=== PATIENT | male | born 1945 | race Caucasian/White ===

== ENCOUNTER → 2019-01-17 | Outpatient (CLI) | payer OTHER ==
[~2019-01-17] VITALS: Ht 172.7 cm; Wt 95.3 kg
[~2019-01-17] MED LIST: B COMPLEX1 EACH PO; CALCIUM500 MG PO; FLOMAX0.4 MG PO; FOSAMAX 70 MG T70 MG PO; GLUCOPHAGE1000 MG PO; NOVOLIN 70100 UNIT/5 SUBQ; VITAMIN D1000 UNI2 PO
--- NOTE | 2019-01-18 10:45 | P ---
[facility] [place] [address] PROCEDURE REPORT Name: THOMASGALENKAROL CORADO Room #: [id number] Admission: 01/17/19 Attend Phys: Cesar Vanegas Discharge: Date of : 41 Report #: [id number] THIS REPORT FOR: //name// CC: Cesar Martinez MD DATE OF SERVICE: 01/17/2019 PROCEDURE PERFORMED: Colonoscopy with biopsies. HISTORY OF PRESENT ILLNESS: The patient is a 73-year-old male who presents today for a screening colonoscopy. Denies any symptoms. He is apparently to undergo a ventral hernia repair in the near future. No family history of colon cancer. DESCRIPTION OF PROCEDURE: The risks and benefits of the procedure were explained to the patient, those risks including but not limited to bleeding, perforation and the risk of sedation. He understood these risks and gave informed consent. Sedation was given using propofol per anesthesia. Next, a digital rectal exam was initially performed, which was normal. Next, using a standard Olympus colonoscope, the scope was placed in the patient's anus and advanced under direct vision into the right colon, at which a surgical anastomosis was noted. This was well healed and widely patent. The terminal ileum was intubated and normal in appearance. The remaining transverse, descending and sigmoid colon were all normal. In the rectum, there was a 4 mm sessile polyp. This was removed with cold forceps, otherwise normal. On retroflexion, no abnormalities were noted. The scope was then withdrawn and the procedure terminated. The patient tolerated the procedure well. IMPRESSION: 1. Surgical anastomosis consistent with a right hemicolectomy. 2. Small rectal polyp. 3. Otherwise, normal colonoscopy. RECOMMENDATIONS: 1. Await biopsy results. 2. If polyp is hyperplastic, repeat in 10 years; if adenomatous polyp, repeat in 5 years. Thank you for allowing me to participate in his care. <ELECTRONICALLY SIGNED> By: Cesar Parkinson MD 01/18/19 1045 [id number] [id number] Cesar Parkinson MD /nt
--- NOTE | 2019-01-19 18:06 | PATH ---
[facility] [address] [place] [address] PATHOLOGY RPT PROCEDURE Name: RANULFO PAZ Room #: REG CL M..#: [id number] Admission: 01/17/19 Date of : 41 Discharge: Report #: [id number] Path Case #: [id number] [facility] Accession Number: [id number] . 01 Material submitted: . rectum - RECTAL POLYP . 01 Clinical history: . Pre-OP DX: Screening Post-OP DX: Rectal polyp . 02 Diagnosis: Polyp, rectal polyp, endoscopic biopsy: - Hyperplastic polyp. - Negative for dysplasia. (IUV:shaker washer; 01/19/2019) MBR 01/19/2019 1126 Local . 02 Electronically signed: . Sharri Cullen MD, Pathologist NPI- [id number] . 01 Gross description: . Received in formalin labeled "Saldiva, Ranulfo, rectal polyp," are 3 segments of rodgers soft tissue measuring 0.5 x 0.5 x 0.2 cm in aggregate dimensions and ranging from 0.2 to 0.5 cm in maximum dimension. The specimen is submitted entirely in cassette A1. (TSD; 01/17/2019) TOB/TOB 01/17/2019 1946 Local . 02 Pathologist provided ICD-10: K62.1 . 02 CPT . 619893 Specimen Comment: A courtesy copy of this report has been sent to [phone] Specimen Comment: [id number] Specimen Comment: Report sent to / DR KOWALSKI Performed at: [address], [place] [id number] MD Lc Kimble MD Phone: [phone] Performed at: [address] [id number] MD Sharri Cullen MD Phone: [phone]
== END | disposition home or self-care (01) ==
LOC: GI 07:12
DX: Z12.11 Encounter for screening for malignant neoplasm of colon (principal); K62.1 Rectal polyp; E11.9 Type 2 diabetes mellitus without complications; K21.9 Gastro-esophageal reflux disease without esophagitis; Z98.890 Other specified postprocedural states; Z98.0 Intestinal bypass and anastomosis status; Z87.442 Personal history of urinary calculi; Z79.899 Other long term (current) drug therapy; Z79.4 Long term (current) use of insulin; Z87.891 Personal history of nicotine dependence; Z85.528 Personal history of other malignant neoplasm of kidney; Z88.0 Allergy status to penicillin